=== PATIENT | male | born 1960 | race Caucasian/White ===

== ENCOUNTER 2020-01-28 18:40 | IRF | payer OTHER, SELFPAY ==
[2020-01-28 18:45] VITALS: BP 146/90; PULSE 72; RESP 16; TEMP 36.7; O2SAT 95
--- NOTE | 2020-01-28 19:15 | ADMGEN ---
This patient, Omar Savage, was admitted to [facility] Room 219-02. Patient/family oriented to hospital policies and general routines including ID bracelet, bed and alarms, visiting hours, pain management, procedures, bathroom and other care routines, personal items, smoking policy, room service/diet, and visiting hours. Valuables list has been completed. Information on how to activate the Rapid Response Team has been discussed. Patient/Family are encouraged to report perceived risks to care and to ask questions if they do not understand what they are told or what they should do.
[2020-01-28 22:00] VITALS: BP 144/86; PULSE 76; RESP 18; TEMP 36.5; O2SAT 97
[2020-01-28] MEDS: ATORVASTATIN 40 MG TABLET PO (22:06)
[2020-01-28 22:53] VITALS: PULSE 71; O2SAT 95
[2020-01-28 23:26] LABS: Glucose Point of Care 320 (65-105)
[2020-01-29 05:26] LABS: Basophils Absolute Auto 0.1 K/mm3 (0.0-0.1); Eosinophils Absolute Auto 0.2 K/mm3 (0-0.3); Eosinophils Percent Auto 3.4 % (0-4.4); Hematocrit 43.5 % (42.0-52.0); Hemoglobin 14.6 g/dL (14.0-18.0); Immature Granulocyte Absolute 0.01 K/mm3 (0.00-0.031); Immature Granulocyte Percent A 0.2 % (0-0.5); Lymphocytes Percent Auto 42.1 % (18.3-44.2); Mean Corpuscular HGB Conc 33.6 g/dl (32-36); Mean Corpuscular Hemoglobin 32.4 pg (26-34); Mean Corpuscular Volume 96.7 fl (80-100); Mean Platelet Volume 11.4 fl (7.4-10.4); Monocytes Absolute Auto 0.6 K/mm3 (0.1-0.6); Monocytes Percent Auto 10.9 % (2.6-8.5); Neutrophils Absolute Auto 2.2 K/mm3 (1.3-6.7); Neutrophils Percent Auto 42.4 % (45.5-73.1); Platelet Count Result 164 k/mm3 (150-375); Red Cell Distribution Width 12.4 % (11.5-14.5); White Blood Count 5.2 K/mm3 (4.5-10.0)
[2020-01-29 05:36] LABS: Blood Urea Nitrogen 18 mg/dL (9-20); Calcium 9.1 mg/dL (8.4-10.2); Carbon Dioxide 29 mmol/L (22-30); Chloride 105 mmol/L (98-107); Cholesterol 115 mg/dL (0-200); Estimated Glomerular Filt Rate > 60; Glucose 168 mg/dL (75-110); HDL Direct 29 mg/dL; Sodium 138 mmol/L (137-145); Triglycerides 137 mg/dL (<150)
[2020-01-29 05:38] LABS: Hemoglobin A1C 8.5 % (<5.7)
[2020-01-29 05:46] LABS: LDL Cholesterol Direct 61 mg/dL
[2020-01-29 06:00] VITALS: BP 106/73; PULSE 60; RESP 16; TEMP 36.4; O2SAT 98
[2020-01-29] MEDS: metFORMIN HCL 500 MG TABLET PO ×3 (06:59→18:09)
[2020-01-29 07:01] LABS: Glucose Point of Care 195 (65-105)
[2020-01-29] MEDS: ASPIRIN 81 MG ENTERIC TABLET PO (08:50)
[2020-01-29] MEDS: lisinopriL 20 MG TABLET PO (08:50)
--- NOTE | 2020-01-29 09:00 | WPDREHABHP ---
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 The patient is a 59-year-old white male who is right-handed who initially presented to [facility] on January 25, 2020 with complaints of right-sided weakness and dysarthria /dysphagia, the patient has a prior medical history of diabetes mellitus type 2, hypertension hyperlipidemia and throat cancer. The patient reported he was driving the morning of January 24 when he noticed right-sided weakness. He was taken to an outside hospital and CT of the head demonstrated a left intraparenchymal hemorrhage. He was hypertensive in his blood sugar was 251. The patient was transferred to [facility] for further management. Upon arrival to the ICU the patient was alert and oriented x4, demonstrated some expressive aphasia and was placed on Cardene drip to assist in controlling his blood pressure. Neurology was consulted and the patient was placed on Plavix and statin for secondary stroke prevention. Patient was transfused 1 unit of platelets for count of 122 has potassium was replaced. Neurosurgery was consulted and signed of due to the patient not requiring surgical intervention. EKG demonstrated normal sinus rhythm. CTA of the head and neck revealed a stable intraparenchymal hematoma of the left putamen. The patient was transitions to oral antihypertensive medications. The patient had a bedside swallowing evaluation on January 25 and past for regular consistency diet and thin liquids. Of note the patient was taking aspirin as a home medication for an unknown reason. The patient demonstrated poor balance, requires standing rest break, diplopia and fair safety awareness. The patient will be discharged to rehab of on heparin for DVT prophylaxis which he probably would not need as he is walking much better The patient has not traveled outside the [place] or had contact with someone who is ill that has traveled outside the [place] in the past 21 days. The patient has not traveled to an area of the [place] that is experiencing known transmission of the Coronavirus and has not had close personal contact with anyone that has. The patient does not have a fever. The patient is not experiencing lower respiratory illness symptoms. Therapy was initiated at the acute care facility and the patient transferred to us from [facility] on January 28, 2020 on FALLS OR SURGERIES: The patient has had no major surgeries in the 100 days prior to admission. They had no falls in the past year. They had no falls with injury in the past year. PAST MEDICAL HISTORY: the diabetes mellitus type 2 hypertension hyperlipidemia throat cancer PAST SURGICAL HISTORY: none reported SOCIAL HISTORY: the patient lives with his in a 1 story home with 2 steps to enter from garage no steps into the front door. Patient was totally independent prior in all ADLs [place] TLS driving in mobility with no assistive device. Patient enjoys building things, told work, and his computer. The patient PCP is at [facility] state he sees which her doctor is there that day. FAMILY HISTORY: Patient is adopted so there is no family history available PRIOR LEVEL OF FUNCTION: Eating was INDEPENDENT Oral Care was INDEPENDENT Toileting Hygiene was INDEPENDENT Shower/Bathing was INDEPENDENT Upper Body Dressing was INDEPENDENT Lower Body Dressing was INDEPENDENT Donning/[place] Footwear was INDEPENDENT Rolling Left and Right was INDEPENDENT Sit to Lying was INDEPENDENT Lying to Sitting was INDEPENDENT Sit to Stand was INDEPENDENT Bed to [facility]
[2020-01-29 12:08] LABS: Glucose Point of Care 147 (65-105)
--- NOTE | 2020-01-29 13:53 | PCCCNOTE ---
On 01/29/20, the student, [Steven Ugalde ], provided care and completed [facility] documentation on this patient. I have reviewed the student's documentation and agree with the findings.
[2020-01-29 14:00] VITALS: BP 132/74; PULSE 67; RESP 20; TEMP 36.6; O2SAT 99
--- NOTE | 2020-01-29 14:29 | PCDIET ---
Patient with SOLUTION DESIGNER over lunch hour. Nurse aid to obtain height and weight. Will reattempt visit 01/30/20 for completion of nutrition assessment.
[2020-01-29 15:13] VITALS: BMI 30.8
--- NOTE | 2020-01-29 16:01 | RPD ---
INDIVIDUALIZED PLAN OF CARE FOR Omar Savage Brief Synthesis of Pre-Admission Screen, Post-Admission Evaluation and Therapy Evaluations: The patient presents to rehab with a left intraparenchymal basal ganglia hemorrhage. Comorbidities include expressive aphasia, dysarthria, DMII, HTN, HLD, right-sided weakness, NAFLD, diplopia, LILY with CPAP, and hypokalemia. The patient?s needs will be best met in an intensive program vs. at a lower level of care. The patient requires physician services for neurology services, medical oversight, and coordination of care. The patient needs physician monitoring for adverse reactions to new medications, monitoring for possible infection, and pain control. The patient requires nursing services for frequent neuro checks, anticoagulation therapy, medication management and education, pressure relief and skin care management, monitoring of labs, diabetes management and education, and fall/safety precautions. Deficits include:ADLs, Balance, Endurance, Family Training/Education, Mobility, Pain Management, ROM, Safety, Speech, Strength, Transfers Bone Density Technician/Case Management for: Discharge Planning and Patient/Family Counseling Physical Therapy: 5 days per week for 75 minutes. Treatments may include: Therapeutic Exercise, Gait Training, Neuromuscular Re-education, Transfer Training, Community Reintegration, Bed Mobility, Patient/Family Education, Wheelchair Mobility Group Therapy/Concurrent Therapy Rationales: -Improve attention span during functional activities in a distracted environment. -Enhance problem solving and/or adequate judgment skills during functional activities in a distracted environment. -Promote increased safety awareness in a distracted environment to reduce fall risk with functional tasks, transfers, and ambulation to allow a more safe, self-sufficient return to the home environment. -Improve dynamic balance skills to promote safety and independence with functional activities in a distracted environment for maximum gain. Occupational Therapy: 5 days per week for 75 minutes. Treatments may include: Therapeutic Exercise, Therapeutic Activity, Cognitive Training, Self-Care Transfer Training, Community Reintegration, Home Management, Patient/Family Education, Wheelchair Mobility Training, Energy Conservation Training Group Therapy/Concurrent Therapy Rationales: -Allow therapist to observe and teach generalization and carry-over of skills learned in individual therapy. -Enhance problem solving and sequencing skills during therapeutic activities in a distracted environment. -Promote increased safety awareness in a realistic setting to reduce fall risk with functional tasks due to visual and verbal distractions. -Increase functional level with ADLs, ADL transfers and use of adaptive equipment through therapeutic activities with others while promoting safety to allow a more safe, self-sufficient return home. Speech Therapy: 5 days per week for 30 minutes. Treatments may include: Dysphasia Therapy, Speech/Language/Communication Therapy, Cognitive Training, Patient/Family Education Group Therapy/Concurrent Therapy - Rationale: -Allow therapist to observe and teach generalization and carry-over of skills learned in individual therapy. -Improve comprehension skills with complex or abstract ideas through discussion in a realistic setting. -Enhance problem solving skills with complex issues during activities in a distracted environment. -Promote increased memory skills and concentration in a distracted environment for a safe transition home. -Improve attention and focus with language/communication skills in a realistic and supportive therapeutic setting. -Allow for practice of expression of basic needs and ideas through functional activities with others. Medical Prognosis: Good Anticipated Length of Stay: 5 days Rehab Goals: Eating Goal: 06-Independent Oral Hygiene Goal: 06-Independent Toileting Hygiene Goal: 06-Independe
[2020-01-29 17:12] LABS: Glucose Point of Care 134 (65-105)
[2020-01-29 20:00] VITALS: PULSE 65; RESP 18; O2SAT 99
[2020-01-29] MEDS: ATORVASTATIN 40 MG TABLET PO (20:02)
[2020-01-29 22:00] VITALS: BP 132/81; PULSE 65; RESP 18; TEMP 35.8; O2SAT 99
[2020-01-29 22:21] LABS: Glucose Point of Care 217 (65-105)
[2020-01-29 22:30] VITALS: PULSE 65; O2SAT 98
[2020-01-30 06:00] VITALS: BP 96/56; PULSE 63; RESP 18; TEMP 35.6; O2SAT 97
[2020-01-30 06:04] LABS: Glucose Point of Care 159 (65-105)
[2020-01-30 08:00] VITALS: PULSE 63; RESP 18; O2SAT 97
[2020-01-30] MEDS: metFORMIN HCL 500 MG TABLET PO ×3 (08:28→17:17)
[2020-01-30] MEDS: ASPIRIN 81 MG ENTERIC TABLET PO (08:28)
[2020-01-30] MEDS: lisinopriL 20 MG TABLET PO (08:28)
[2020-01-30 12:11] LABS: Glucose Point of Care 232 (65-105)
[2020-01-30] MEDS: INSULIN ASPART (*BKC) 100 UNITS/ML SUB-Q (12:15)
[2020-01-30 13:03] VITALS: BMI 30.8
--- NOTE | 2020-01-30 13:15 | WPDNEURORHBP ---
Subjective Date/time seen: 01/30/20 13:15 Interval history: this 59-year-old gentleman is here after having had the bleed in the a left basal ganglia region which has left him with the mostly expressive aphasia and right-sided weakness he is improving quite a bit speech is improving he denies any headache nausea vomiting chest pain or shortness of breath fever chills or sore throat Review of Systems Review of Systems: All systems reviewed & are unremarkable except as noted in HPI and below Functional Status Ambulation Ability Ability to Ambulate 10 Feet: Independent Ability to Ambulate 50 Feet With 2 Turns: Independent Ability to Ambulate 150 Feet: Independent Ambulation Assistive Devices: None Transfers Ability Ability to Transfer In/Out of Chair: Independent Exam Const: General: comfortable and no acute distress HENMT: General nose exam: Normal nares present Mouth: Yes moist mucous membranes Eyes: General: appearance normal, both eyes and all related structures Neck: Neck: supple and no JVD Resp: Effort & Inspection: normal respiratory effort Auscultation: clear to auscultation bilaterally Cardio: Rate: regular rate Rhythm: regular rhythm GI: GI Palp: Yes Soft to palpation Auscultation: normal bowel sounds Skin: General skin exam: normal color and no rashes or lesions noted Neuro: Other: patient is awake and alert well oriented has improving expressive aphasia and improving right-sided hemiparesis Extrem: General: normal to inspection Psych: Mental Status: mental status grossly normal Objective Data Vital Signs Vital Signs: Vital Signs - 24 hr 01/29/20 14:00 01/29/20 20:00 01/29/20 22:00 Temperature 36.6 C 35.8 C L Pulse Rate 67 65 65 Respiratory Rate 20 18 18 Blood Pressure 132/74 132/81 Pulse Oximetry 99 99 99 01/29/20 22:30 01/30/20 06:00 01/30/20 08:00 Temperature 35.6 C L Pulse Rate 65 63 63 Respiratory Rate 18 18 Blood Pressure 96/56 L Pulse Oximetry 98 97 97 Intake/Output Intake/Output: Intake & Output 01/27/20 01/28/20 01/29/20 01/30/20 23:59 23:59 23:59 23:59 Intake Total 720 240 Balance 720 240 Meds/Results Medications: Active Medications Generic Name Dose Route Start Last Admin Trade Name Freq PRN Reason Stop Dose Admin Aspirin 81 mg 01/29/20 09:00 01/30/20 08:28 Aspirin Ec PO 81 mg DAILY FRANCO Administration Atorvastatin Calcium 40 mg 01/28/20 21:25 01/29/20 20:02 Lipitor PO 40 mg HS FRANCO Administration Dextrose 12.5 gm 01/28/20 21:45 Dextrose 50% Syringe IV PUSH PRN PRN Hypoglycemia Protocol Fluticasone Propionate 2 spray 01/28/20 23:35 Flonase 0.05% Nasal [place] NASAL QAM PRN Congestion Glucagon 1 mg 01/28/20 21:45 Glucagon For Inj IM PRN PRN Hypoglycemia Protocol Glucose 15 gm 01/28/20 21:45 Glutose 15 PO PRN PRN Hypoglycemia Protocol Dextrose 1,000 mls @ 100 mls/hr 01/28/20 21:45 Dextrose 5% 1,000 Ml IVPB PRN PRN Hypoglycemia Protocol Insulin Aspart 2 - 5 units 01/29/20 08:00 01/30/20 05:55 Novolog SUB-Q Not Given TIDWM [facility] Protocol Lisinopril 20 mg 01/29/20 09:00 01/30/20 08:28 Prinivil PO 20 mg DAILY FRANCO Administration Metformin HCl 500 mg 01/29/20 09:00 01/30/20 12:22 Glucophage PO 500 mg TID FRANCO Administration Triamcinolone Acetonide 1 applic 01/29/20 02:30 Kenalog 0.1% Cream TOPICAL QID PRN Eczema Labs Labs: Laboratory Results - last 24 hr 01/29/20 01/29/20 01/30/20 17:00 20:01 05:54 POC Capillary Glucose 134 H 217 H 159 H 01/30/20 11:34 POC Capillary Glucose 232 H Progress Note: A&P Assessment and Plan (1) Expressive aphasia: Code(s): R47.01 - Aphasia Status: Acute (2) Right hemiparesis: Code(s): G81.91 - Hemiplegia, unspecified affecting right dominant side Status: Acute (3) Hypertensio
[2020-01-30 14:00] VITALS: BP 104/46; PULSE 119; RESP 20; TEMP 37.3; O2SAT 100
--- NOTE | 2020-01-30 14:23 | PCCCNOTE ---
On 01/30/20, the student, [Steven Ugalde ], provided care and completed [facility] documentation on this patient. I have reviewed the student's documentation and agree with the findings.
[2020-01-30 16:52] LABS: Glucose Point of Care 136 (65-105)
[2020-01-30] MEDS: ATORVASTATIN 40 MG TABLET PO (21:00)
[2020-01-30 21:18] LABS: Glucose Point of Care 200 (65-105)
[2020-01-30 22:05] VITALS: BP 126/75; PULSE 70; RESP 18; TEMP 35.5; O2SAT 100
[2020-01-31 06:00] VITALS: BP 99/65; PULSE 69; RESP 18; TEMP 35.4; O2SAT 97
[2020-01-31 07:16] LABS: Glucose Point of Care 194 (65-105)
[2020-01-31 08:00] VITALS: PULSE 69; RESP 18; O2SAT 97
[2020-01-31] MEDS: lisinopriL 20 MG TABLET PO (10:04)
[2020-01-31] MEDS: metFORMIN HCL 500 MG TABLET PO ×3 (10:04→17:20)
[2020-01-31] MEDS: ASPIRIN 81 MG ENTERIC TABLET PO (10:04)
[2020-01-31 11:53] LABS: Glucose Point of Care 123 (65-105)
[2020-01-31 14:00] VITALS: BP 118/64; PULSE 76; RESP 18; TEMP 37; O2SAT 100
--- NOTE | 2020-01-31 15:51 | PC.NURSE ---
Patient walks in [place] all day long. No complaints voiced.
[2020-01-31 17:15] LABS: Glucose Point of Care 121 (65-105)
[2020-01-31] MEDS: ATORVASTATIN 40 MG TABLET PO (20:18)
[2020-01-31 21:21] VITALS: PULSE 64; O2SAT 95
[2020-01-31 21:24] LABS: Glucose Point of Care 172 (65-105)
[2020-01-31 22:00] VITALS: BP 128/83; PULSE 68; RESP 18; TEMP 36.2; O2SAT 99
[2020-01-31 23:05] VITALS: PULSE 66; O2SAT 96
[2020-02-01 06:00] VITALS: BP 105/62; PULSE 98; RESP 20; TEMP 36.3; O2SAT 99
[2020-02-01 06:48] LABS: Glucose Point of Care 168 (65-105)
[2020-02-01] MEDS: lisinopriL 20 MG TABLET PO (08:31)
[2020-02-01] MEDS: ASPIRIN 81 MG ENTERIC TABLET PO (08:31)
[2020-02-01] MEDS: metFORMIN HCL 500 MG TABLET PO ×3 (08:31→16:58)
--- NOTE | 2020-02-01 12:23 | WPDNEURORHBP ---
Subjective Date/time seen: 02/01/20 12:23 Non traumatic brain dysfunction with intraparenchymalbasal gangliar hemohrrage and right hemiparesis with aphasia also H/ODM type 2 Review of Systems Review of Systems: All systems reviewed & are unremarkable except as noted in HPI and below Functional Status Ambulation Ability Ability to Ambulate 10 Feet: Independent Ability to Ambulate 50 Feet With 2 Turns: Independent Ability to Ambulate 150 Feet: Independent Ambulation Assistive Devices: None Transfers Ability Ability to Transfer In/Out of Chair: Independent Exam Const: General: cooperative, comfortable and no acute distress HENMT: Head: normal to inspection General nose exam: Normal external nose present and No nasal discharge present Mouth: Yes Normal oral and palatal mucosa present and Yes tongue normal Eyes: General: appearance normal, both eyes and all related structures Neck: Neck: full ROM and no lymphadenopathy Resp: Effort & Inspection: normal respiratory effort Auscultation: clear to auscultation bilaterally Cardio: Rate: regular rate Rhythm: regular rhythm GI: Auscultation: normal bowel sounds Extrem: General: normal to inspection Psych: Appearance: grossly normal Objective Data Vital Signs Vital Signs: Vital Signs - 24 hr 01/31/20 14:00 01/31/20 21:21 01/31/20 22:00 Temperature 37.0 C 36.2 C L Pulse Rate 76 64 68 Respiratory Rate 18 18 Blood Pressure 118/64 128/83 Pulse Oximetry 100 95 99 01/31/20 23:05 02/01/20 06:00 Temperature 36.3 C L Pulse Rate 66 98 Respiratory Rate 20 Blood Pressure 105/62 Pulse Oximetry 96 99 Intake/Output Intake/Output: Intake & Output 01/29/20 01/30/20 01/31/20 02/01/20 23:59 23:59 23:59 23:59 Intake Total 720 480 960 480 Balance 720 480 960 480 Meds/Results Medications: Active Medications Generic Name Dose Route Start Last Admin Trade Name Freq PRN Reason Stop Dose Admin Aspirin 81 mg 01/29/20 09:00 02/01/20 08:31 Aspirin Ec PO 81 mg DAILY FRANCO Administration Atorvastatin Calcium 40 mg 01/28/20 21:25 01/31/20 20:18 Lipitor PO 40 mg HS FRANCO Administration Dextrose 12.5 gm 01/28/20 21:45 Dextrose 50% Syringe IV PUSH PRN PRN Hypoglycemia Protocol Fluticasone Propionate 2 spray 01/28/20 23:35 Flonase 0.05% Nasal [place] NASAL QAM PRN Congestion Glucagon 1 mg 01/28/20 21:45 Glucagon For Inj IM PRN PRN Hypoglycemia Protocol Glucose 15 gm 01/28/20 21:45 Glutose 15 PO PRN PRN Hypoglycemia Protocol Dextrose 1,000 mls @ 100 mls/hr 01/28/20 21:45 Dextrose 5% 1,000 Ml IVPB PRN PRN Hypoglycemia Protocol Insulin Aspart 2 - 5 units 01/29/20 08:00 02/01/20 12:15 Novolog SUB-Q Not Given TIDWM [facility] Protocol Lisinopril 20 mg 01/29/20 09:00 02/01/20 08:31 Prinivil PO 20 mg DAILY FRANCO Administration Metformin HCl 500 mg 01/29/20 09:00 02/01/20 12:14 Glucophage PO 500 mg TID FRANCO Administration Triamcinolone Acetonide 1 applic 01/29/20 02:30 Kenalog 0.1% Cream TOPICAL QID PRN Eczema Labs Labs: Laboratory Results - last 24 hr 01/31/20 01/31/20 02/01/20 17:11 20:52 06:31 POC Capillary Glucose 121 H 172 H 168 H Progress Note: A&P Assessment and Plan (1) Expressive aphasia: Code(s): R47.01 - Aphasia Status: Acute (2) Right hemiparesis: Code(s): G81.91 - Hemiplegia, unspecified affecting right dominant side Status: Acute (3) Hypertension: Code(s): I10 - Essential (primary) hypertension Status: Acute (4) Diabetes mellitus: Code(s): E11.9 - Type 2 diabetes mellitus without complications Status: Acute (5) Intracranial hemorrhage: Code(s): I62.9 - Nontraumatic intracranial hemorrhage, unspecified Status: Acute Additional Plan continue therapy as such
[2020-02-01 13:05] LABS: Glucose Point of Care 122 (65-105)
[2020-02-01 14:00] VITALS: BP 122/70; PULSE 74; RESP 18; TEMP 36.2; O2SAT 96
[2020-02-01 17:17] LABS: Glucose Point of Care 131 (65-105)
[2020-02-01 20:00] VITALS: PULSE 70; RESP 18; O2SAT 98
[2020-02-01] MEDS: ATORVASTATIN 40 MG TABLET PO (21:20)
[2020-02-01 21:53] VITALS: BP 115/73; PULSE 70; RESP 18; TEMP 36.1; O2SAT 98
[2020-02-01 22:01] LABS: Glucose Point of Care 167 (65-105)
[2020-02-01 22:35] VITALS: PULSE 80; O2SAT 97
[2020-02-02 06:00] VITALS: BP 105/69; PULSE 73; RESP 18; TEMP 35; O2SAT 100
[2020-02-02 06:10] LABS: Glucose Point of Care 138 (65-105)
[2020-02-02] MEDS: lisinopriL 20 MG TABLET PO (08:29)
[2020-02-02] MEDS: ASPIRIN 81 MG ENTERIC TABLET PO (08:29)
[2020-02-02] MEDS: metFORMIN HCL 500 MG TABLET PO ×3 (08:29→17:18)
[2020-02-02 12:11] LABS: Glucose Point of Care 123 (65-105)
[2020-02-02 14:00] VITALS: BP 112/62; PULSE 76; RESP 20; TEMP 36.6; O2SAT 100
[2020-02-02 17:37] LABS: Glucose Point of Care 106 (65-105)
[2020-02-02 20:00] VITALS: PULSE 68; RESP 18; O2SAT 100
[2020-02-02] MEDS: ATORVASTATIN 40 MG TABLET PO (21:24)
[2020-02-02 21:49] VITALS: BP 132/87; PULSE 68; RESP 18; TEMP 35.2; O2SAT 100
[2020-02-02 22:07] LABS: Glucose Point of Care 188 (65-105)
[2020-02-02 22:40] VITALS: PULSE 69; O2SAT 99
[2020-02-03 02:40] VITALS: PULSE 71; O2SAT 98
[2020-02-03 06:00] VITALS: BP 137/95; PULSE 71; RESP 18; TEMP 35.3; O2SAT 97
[2020-02-03 07:37] LABS: Glucose Point of Care 185 (65-105)
[2020-02-03] MEDS: ASPIRIN 81 MG ENTERIC TABLET PO (09:33)
[2020-02-03] MEDS: lisinopriL 20 MG TABLET PO (09:33)
[2020-02-03] MEDS: metFORMIN HCL 500 MG TABLET PO (09:34)
--- NOTE | 2020-02-03 11:54 | WPDNEURORHBP ---
Subjective Date/time seen: 02/03/20 11:54 Interval history: This 59-year-old gentleman is ready to be discharged today his aphasia has significantly improved likewise is right-sided hemiparesis has improved the case was discussed in the team conference with the being on the telephone the questions were answered for their satisfaction He denies any headache nausea vomiting chest pain shortness of breath fever chills or sore throat Review of Systems Review of Systems: All systems reviewed & are unremarkable except as noted in HPI and below Functional Status Ambulation Ability Ability to Ambulate 10 Feet: Independent Ability to Ambulate 50 Feet With 2 Turns: Independent Ability to Ambulate 150 Feet: Independent Ambulation Assistive Devices: None Transfers Ability Ability to Transfer In/Out of Chair: Independent Exam Const: General: comfortable and no acute distress HENMT: General nose exam: Normal nares present Mouth: Yes moist mucous membranes Eyes: General: appearance normal, both eyes and all related structures Neck: Neck: supple and no JVD Resp: Effort & Inspection: normal respiratory effort Auscultation: clear to auscultation bilaterally Cardio: Rate: regular rate Rhythm: regular rhythm GI: GI Palp: Yes Soft to palpation Auscultation: normal bowel sounds Skin: General skin exam: normal color and no rashes or lesions noted Neuro: Other: the speech defect significantly improved right-sided hemiparesis significant improved overall remarkable improvement from the left basal ganglia hemorrhage Extrem: General: normal to inspection Psych: Mental Status: mental status grossly normal Objective Data Vital Signs Vital Signs: Vital Signs - 24 hr 02/02/20 14:00 02/02/20 20:00 02/02/20 21:49 Temperature 36.6 C 35.2 C L Pulse Rate 76 68 68 Respiratory Rate 20 18 18 Blood Pressure 112/62 132/87 Pulse Oximetry 100 100 100 02/02/20 22:40 02/03/20 02:40 02/03/20 06:00 Temperature 35.3 C L Pulse Rate 69 71 71 Respiratory Rate 18 Blood Pressure 137/95 H Pulse Oximetry 99 98 97 Intake/Output Intake/Output: Intake & Output 01/31/20 02/01/20 02/02/20 02/03/20 23:59 23:59 23:59 23:59 Intake Total 960 1440 960 500 Balance 960 1440 960 500 Meds/Results Medications: Active Medications Generic Name Dose Route Start Last Admin Trade Name Freq PRN Reason Stop Dose Admin Aspirin 81 mg 01/29/20 09:00 02/03/20 09:33 Aspirin Ec PO 81 mg DAILY FRANCO Administration Atorvastatin Calcium 40 mg 01/28/20 21:25 02/02/20 21:24 Lipitor PO 40 mg HS FRANCO Administration Dextrose 12.5 gm 01/28/20 21:45 Dextrose 50% Syringe IV PUSH PRN PRN Hypoglycemia Protocol Fluticasone Propionate 2 spray 01/28/20 23:35 Flonase 0.05% Nasal [place] NASAL QAM PRN Congestion Glucagon 1 mg 01/28/20 21:45 Glucagon For Inj IM PRN PRN Hypoglycemia Protocol Glucose 15 gm 01/28/20 21:45 Glutose 15 PO PRN PRN Hypoglycemia Protocol Dextrose 1,000 mls @ 100 mls/hr 01/28/20 21:45 Dextrose 5% 1,000 Ml IVPB PRN PRN Hypoglycemia Protocol Insulin Aspart 2 - 5 units 01/29/20 08:00 02/03/20 09:33 Novolog SUB-Q Not Given TIDWM [facility] Protocol Lisinopril 20 mg 01/29/20 09:00 02/03/20 09:33 Prinivil PO 20 mg DAILY FRANCO Administration Metformin HCl 500 mg 01/29/20 09:00 02/03/20 09:34 Glucophage PO 500 mg TID FRANCO Administration Triamcinolone Acetonide 1 applic 01/29/20 02:30 Kenalog 0.1% Cream TOPICAL QID PRN Eczema Labs Labs: Laboratory Results - last 24 hr 02/02/20 02/02/20 02/02/20 12:03 17:13 21:31 POC Capillary Glucose 123 H 106 188 H 02/03/20 07:35 POC Capillary Glucose 185 H Progress Note: A&P Assessment and Plan (1) Expressive aphasia: Code(s): R47.01 - Aphasia Status: Acute (2) Right hemiparesis:
[2020-02-03 12:00] LABS: Glucose Point of Care 144 (65-105)
--- NOTE | 2020-02-05 11:28 | PM.DS ---
DS: Admitting Diagnosis Admitting Diagnosis Admitting Diagnosis: Nontraumatic intracranial hemorrhage, unspecified DS: Discharge Diagnosis Discharge Diagnosis (1) Expressive aphasia: Code(s): R47.01 - Aphasia Status: Acute (2) Right hemiparesis: Code(s): G81.91 - Hemiplegia, unspecified affecting right dominant side Status: Acute (3) Hypertension: Code(s): I10 - Essential (primary) hypertension Status: Acute (4) Diabetes mellitus: Code(s): E11.9 - Type 2 diabetes mellitus without complications Status: Acute (5) Intracranial hemorrhage: Code(s): I62.9 - Nontraumatic intracranial hemorrhage, unspecified Status: Acute DS: Summary Hospital Course Reason for hospitalization: this 59-year-old gentleman was admitted because of intracranial hemorrhage and other condition mentioned in my history he see the physical therapy of compression therapy speech therapy and gait training and was able to achieve our goals Hospital Course: the course of hospitalization was uncomplicated and he was able to achieve the following independent measures. Eating independent oral hygiene independent toileting independent bathing independent upper body dressing independent lower body dressing independent footwear independent rolling in bed independent sitting to lying independent lying to sitting independent sit to stand independent chair transfers independent toilet transfers independent car transfers independent walking 10 feet independent walking 50 feet with 2 stairs independent walking 150 feet independent walking 10 feet uneven surfaces independent Swisher step independent 4 steps independent 12 steps ended independent picking about object independent wheelchair and not applicable the patient was discharged in good condition with significant improvement and outpatient therapies recommend Time Spent with Patient Time attestation: Total time spent providing and/or coordinating discharge services: Exam Const: General: comfortable and no acute distress HENMT: General nose exam: Normal nares present Mouth: Yes dry mucous membranes Eyes: General: appearance normal, both eyes and all related structures Neck: Neck: supple and no JVD Resp: Effort & Inspection: normal respiratory effort Auscultation: clear to auscultation bilaterally Cardio: Rate: regular rate Rhythm: regular rhythm GI: GI Palp: Yes Soft to palpation Auscultation: normal bowel sounds Skin: General skin exam: normal color and no rashes or lesions noted Neuro: Other: patient overall neurological status has significantly improved his aphasia and right-sided hemiparesis or almost negligible at the time of discharge and quite independent in his activities daily living Extrem: General: normal to inspection Psych: Mental Status: mental status grossly normal DS: Data Data Completed and Pending Completed studies during hospitalization: please refer to the electronic health records for his multiple testing performed in our hospital Discharge Plan Discharge Attending physician on discharge: Rad Sunshine Discharging Clinician: Rad Sunshine Anticipated Discharge Date/Time: 02/03/20 11:58 Patient Disposition: Home, Self-Care Activity: may shower and no driving Diet: diabetic Discharge Instructions: patient is to follow up with the Neurology at the referring hospital and also follow-up with the primary care physician The primary care to decide whether not the patient would need insulin at home he was getting sliding scale insulin here Patient Instructions: Antibiotic Form, Pain Management (DC), Intracerebral Hemorrhage (DC), Type 2 Diabetes Management for Adults (DC) Stand Alone Forms: General Discharge Information Follow-up/Referrals: primary care physician [Other] (As instructed please see your PCP after discharge from rehab.) Neurologist [Other] (Follow up with referring hospital Neurologist as instruct
== END 2020-02-03 13:26 | disposition home or self-care (01) | DRG 57 ==
PROVIDERS: Admitting Provider Psychiatry & Neurology Neurology; Visit Provider Psychiatry & Neurology Neurology
DX: I69.251 Hemiplegia and hemiparesis following other nontraumatic intracranial hemorrhage affecting right dominant side (principal); I69.220 Aphasia following other nontraumatic intracranial hemorrhage; E11.9 Type 2 diabetes mellitus without complications; E78.5 Hyperlipidemia, unspecified; G47.33 Obstructive sleep apnea (adult) (pediatric); H53.2 Diplopia; I10 Essential (primary) hypertension; K76.0 Fatty (change of) liver, not elsewhere classified; Z79.84 Long term (current) use of oral hypoglycemic drugs; Z79.82 Long term (current) use of aspirin; Z85.818 Personal history of malignant neoplasm of other sites of lip, oral cavity, and pharynx
CPT/HCPCS: 36415; 80048; 80061; 83036; 85025; 92507; 92523; 97110; 97116; 97161; 97165; 97530; 97535; A9270; J1815

== ENCOUNTER 2020-07-14 14:20 | Outpatient (CLI) | payer OTHER, SELFPAY ==
--- NOTE | ~2020-07-14 | MR_ITS ---
EXAMINATION: MR brain/brain stem wo con DATE: 07/14/2020 15:23 INDICATION: Nontraumatic intracranial hemorrhage. TECHNIQUE: Magnetic resonance imaging (MRI) of the brain and brainstem was performed without intraven ous contrast. Sequences included sagittal and axial T1-weighted FSE, axial diffusion-weighted FS EPI, axial T2*-weighted GRE, axial T2-weighted FLAIR Propeller, and axial T2-weighted Propeller. Apparent diffusion coefficient (ADC) maps were created. COMPARISON: None. FINDINGS: There is chronic encephalomalacia with old blood products in the left basal ganglia and lef t frontal lobe verma radiata. There is no acute ischemic infarct or abnormal mass lesion. The ventri cles are normal in size. There is mucosal thickening in left maxillary sinus. The orbits are normal. The mastoid air cells are normal. IMPRESSION: 1. Chronic encephalomalacia with old blood products in the left basal ganglia and left frontal lobe c nael radiata. Reviewed, dictated and finalized at location A. WRITING INTERN IMPRESSION: 1. Chronic encephalomalacia with old blood products in the left basal ganglia a nd left frontal lobe verma radiata.
== END 2020-07-14 14:21 | disposition home or self-care (01) ==
LOC: ANHIMG 14:23
PROVIDERS: PCP Nurse Practitioner; Visit Provider Psychiatry & Neurology Neurology
DX: I62.9 Nontraumatic intracranial hemorrhage, unspecified (principal)
CPT/HCPCS: 70551